=== PATIENT | female | born 1945 | race Caucasian/White ===

== ENCOUNTER 2017-08-19 10:13 | Day surgery (SDC) | payer MEDICARE ==
--- NOTE | 2017-08-16 12:30 | Pre-op HX & Phy Repo 2 SIG ---
DATE OF ENDOSCOPY: 08/19/2017 PRE-ENDOSCOPY HISTORY AND PHYSICAL DATE OF OUTPATIENT ENDOSCOPY: August 19, 2017 HISTORY OF PRESENT ILLNESS: The patient is a 72-year-old female in overall good health with difficulty with intubation of her Kock pouch continent ileostomy. The patient has a past history of ulcerative colitis and in 1974 underwent proctocolectomy with Gita ileostomy followed one year later by creation of a Kock pouch continent ileostomy. She underwent drainage of intra-abdominal abscess twice in 1976. In August 2014 she underwent laparotomy with revision of her Kock pouch stoma in depth because of a redundant and elongated access segment. She underwent surgery on October 05, 2015 to revise a stoma stenosis associated with intermittent pain and discomfort with hypersensitivity. Following the surgery in 2015 the patient did well until early 2017, when she started having intermittent difficulty inserting her 30-Bahamian Medena catheter. She was able a 24-Bahamian Medena catheter without difficulty but there was some resistance 2 inches into the stoma. She had suffered a muscle strain and after a period of time, she briefly improved but the end of July, she experienced difficulty intubating again and is now scheduled to undergo endoscopy of her Kock pouch to identify the reason for the difficulty. PAST MEDICAL HISTORY: MEDICATIONS: Thyroid; qvar inhaler one puff daily ALLERGIES: Cipro causes flu-like syndrome and she does not tolerate Vicodin. OPERATIONS: In addition to the above, she has had facial cosmetic surgery. REVIEW OF SYSTEMS: She is 2, para 0, AB 2. She has a history of bronchial asthma. PHYSICAL EXAMINATION: The patient is coming from out of town. She will be examined upon arrival and dictated separately. Previous exam has revealed a long left paramedian incision with the stoma of the Kock pouch low in the right lower quadrant. IMPRESSION: 1. Malfunctioning Kock pouch with difficulty with intubation. 2. History of ulcerative colitis. 3. Status post multiple abdominal operations. 1. Proctocolectomy and Gita ileostomy in 1974. 2. Kock pouch continent ileostomy in 1975. 3. Drainage of intra-abdominal abscess x2 in 1976. 4. Laparotomy with revision of Kock pouch stoma and access segment August 2014 5. Revision of Kock pouch stoma October 2015. PLAN: The patient will undergo Kock pouch endoscopy, which does not require any anesthesia or sedation. She has been through this before and understands and agrees to proceed. Nikita Almaraz M.D. DR: Marilia JOB#: [id number] CC: ALLAN
[~2017-08-19] VITALS: Ht 170.2 cm; Wt 56.7 kg
[~2017-08-19 10:13] MED LIST: FLONASE1 SPRAYS NASAL; QVAR7.3 G2 IH; SYNTHROID88 MCG ORAL; VITAMIN B IM
[2017-08-19 10:59] VITALS: BP 114/56
--- NOTE | 2017-08-19 11:09 | Pre-Procedure Note/Attestation ---
Pre-Procedure Note/Attestation Complete Prior to Procedure Planned Procedure: not applicable Procedure Narrative: Kock Pouch endoscopy Indications for Procedure Pre-Operative Diagnosis: Malfunctioning Kock Pouch with difficulty with intubation Attestation I attest that I discussed the nature of the procedure; its benefits; risks and complications; and alternatives (and the risks and benefits of such alternatives ), prior to the procedure, with the patient (or the patient's legal architectural representative). I attest that, if there was a reasonable possibility of needing a blood transfusion, the patient (or the patient's legal architectural representative) was given the [facility] standardized written summary, pursuant to the Jose Russ Blood Safety Act ([place] Health and Safety Code # 1645, as amended). I attest that I re-evaluated the patient just prior to the surgery and that there has been no change in the patient's H&P, except as documented below: none JARVIS ARTHUR Aug 19, 2017 11:09
[2017-08-19 12:20] VITALS: BP 131/66
--- NOTE | 2017-08-19 12:36 | Brief Operative Note ---
Immediate Post Operative Note Operative Note Pre-op Diagnosis: Malfunctioning Kock Pouch with difficulty with intubation Procedure: Kock pouch endoscopy Post-op Diagnosis: mild stenosis of stoma and access segment Post-op Diagnosis: same as pre-op Findings: consistent w/pre-op dx studies Surgeon: daniel Anesthesia: other - none Specimen: none Complications: none Condition: stable Fluids: none Estimated Blood Loss: none Drains: none Implant(s) used?: JARVIS Hill Aug 19, 2017 12:35
--- NOTE | 2017-08-19 18:30 | Procedure Note ---
DATE OF PROCEDURE: 08/19/2017 ENDOSCOPY PROCEDURE SURGEON: Nikita Almaraz M.D. TYPE OF ENDOSCOPY: Kock Pouch continent ileostomy pouch endoscopy. PRE-ENDOSCOPIC DIAGNOSES: 1. Malfunctioning Kock pouch with difficulty with intubation. 2. History of ulcerative colitis. 3. Status post proctocolectomy and Gita ileostomy in 1974. 4. Status post Kock pouch in 1975. 5. Laparotomy with revision of Kock pouch stoma and access segment in August 2014. 6. Revision of Kock pouch stoma in October 2015. POST-ENDOSCOPIC DIAGNOSES: 1. Malfunctioning Kock pouch with difficulty with intubation. 2. History of ulcerative colitis. 3. Status post proctocolectomy and Gita ileostomy in 1974. 4. Status post Kock pouch in 1975. 5. Laparotomy with revision of Kock pouch stoma and access segment in August 2014. 6. Revision of Kock pouch stoma in October 2015. ENDOSCOPY PERFORMED: Kock pouch endoscopy. FINDINGS: Mild stenosis of the stoma and the entire access segment with a normal pouch and nipple valve. The distance from the stoma orifice to the tip of the valve was approximately 8 cm, which was expected in this patient. DESCRIPTION OF PROCEDURE: The patient was first examined. GENERAL: Well developed and well nourished. HEENT: Within normal limits. LUNGS: Clear. HEART: Regular rate and rhythm. BREASTS: Without masses, per primary care physician. ABDOMEN: Soft. Long left paramedian scar with stoma of the Kock pouch low in the right lower quadrant with mild stoma stenosis due to cicatrix. There is no evidence of abdominal wall hernia. PELVIC: Per primary care. RECTAL: Status post proctectomy. EXTREMITIES: Without edema. NEUROLOGIC: Physiologic. Without any sedation or anesthesia given or required, I first attempted to insert the GIF-P140 endoscope into the stoma, but it was slightly smaller than the tip of the scope. I then inserted a 28-Romanian Riley catheter which dilated the stoma and I was able to pass a tight segment which was 5 cm deep until it then entered the pouch. A 26-Romanian Riley catheter went in much more readily. I then went back to the endoscope and under direct vision, observed a mild stenosis of the access segment, the valve segment less so and the pouch was quite distensible with normal mucosa throughout. Retroflexed views revealed a circumferentially well-formed nipple valve. Withdrawal views confirmed the above findings. I was able to fairly readily reinsert a 28-Romanian Riley into the pouch and decompressed it more fully. I used a stent small and entered readily, but did not go deep enough to reach the point of most narrowing and the large stent would not enter through the stenotic orifice of the stoma. The patient will stent her pouch using the Medena catheter with a catheter delivery table feeder and a catheter plug, and I advised her to wear it all night long and to do this for least one week and then see if the intubations are getting smoother, otherwise she may need to wear this stent [id number], removing it only to empty the pouch and then maintaining the stent fashioned out of a 30-Romanian Medena catheter. She will follow up over the next several weeks. The patient tolerated the endoscopy well. Nikita Almaraz M.D. DR: VISHNU JOB#: [id number] CC:
== END 2017-08-19 12:55 | disposition home or self-care (01) ==
LOC: GAS 10:13
DX: K94.13 Enterostomy malfunction (principal); K51.90 Ulcerative colitis, unspecified, without complications; Z90.49 Acquired absence of other specified parts of digestive tract